=== PATIENT | female | born 1985 | race African-American/Black ===

== ENCOUNTER 2017-12-22 00:27 | Emergency (ER) | payer OTHER ==
[2017-12-22 00:41] VITALS: BP 134/74; PULSE 76; TEMP 98.2; BMI 44.4
[2017-12-22] MEDS ORDERED: IBUPROFEN 400 MG TABLET (FP) PO ONE ×2 (01:16→02:26)
--- NOTE | 2017-12-22 01:37 | PDOC ---
History of Present Illness - General Chief Complaint: Pain, Acute Stated Complaint: FALL LEFT KNEE Time Seen by Provider: 12/22/17 01:05 History Source: Patient Exam Limitations: No Limitations - History of Present Illness Initial Comments: 12/22/17 01:31 Healthy 32-year-old female morbidly obese presents with left knee pain after fall from ladder. Patient was on for the last rung when she misstepped and fell to the ground, landing on her left knee and striking her left hand. No head injury or loss of consciousness, the patient initially felt fine and was ambulatory but has slowly developed progressive left knee pain with difficulty weightbearing and difficulty ranging. No sensory deficit, has noted some swelling. Reports isolated pain to the left fourth digit around the middle phalanx and DIP joint, no sensory deficit. No other complaints, did not take anything for pain. Past History - Past Medical History Allergies/Adverse Reactions: Allergies Allergy/AdvReac Type Severity Reaction Status Date / Time C[place]ut Allergy Itching Verified 12/22/17 00:41 No Known Drug Allergies Allergy Verified 12/22/17 00:41 strawberry [[place]] Allergy Itching Verified 12/22/17 00:41 tomato [Tomato] Allergy Itching Verified 12/22/17 00:41 Home Medications: Ambulatory Orders Naproxen 500 mg PO BID PRN #20 tablet 12/22/17 Oxycodone HCl/Acetaminophen [Percocet 5-325 mg Tablet] 1 - 2 tab PO TID PRN #20 tab MDD 6 tabs 12/22/17 Asthma: No Cancer: No Cardiac Disorders: No COPD: No Diabetes: Yes (IDDM) HTN: Yes (chronic, per chart) Seizures: No Thyroid Disease: No - Suicide/Smoking/Psychosocial Hx Smoking Status: No Smoking History: Never smoked Have you smoked in the past 12 months: Yes Number of Cigarettes Smoked Daily: 3 'Breaking Loose' booklet given: 01/06/15 Hx Alcohol Use: No Drug/Substance Use Hx: No Substance Use Type: Marijuana Hx Substance Use Treatment: No Review of Systems - Review of Systems Constitutional: No: Chills, Fever HEENTM: No: Recent change in vision Respiratory: No: Cough, Shortness of Breath Cardiac (ROS): No: Chest Pain ABD/GI: No: Nausea, Vomiting Musculoskeletal: Yes: See HPI Neurological: No: Headache All Other Systems: Reviewed and Negative *Physical Exam - Vital Signs Last Vital Signs Temp Pulse Resp BP Pulse Ox 98.2 F 76 18 134/74 98 12/22/17 00:40 12/22/17 00:40 12/22/17 00:40 12/22/17 00:40 12/22/17 00:40 - Physical Exam Comments: 12/22/17 01:34 General: Patient is alert and in no acute distress. Speech is clear and appropriate. Head: Atraumatic and nontender. HEENT: Pupils are equal round and reactive to light, extraocular movements are intact. No facial deformity/tenderness, no septal hematoma. The oropharynx is clear. Neck: The trachea is midline, there is no stridor. There is no midline cervical spine tenderness, full range of motion of neck. Chest: Nontender, no ecchymosis or abrasions. Heart: S1-S2, regular rate and rhythm. No murmurs. Lungs: Clear to auscultation bilaterally. Symmetric chest rise. Abdomen: Soft/nontender/nondistended. Bowel sounds are normal. There is no abdominal or flank ecchymosis. Back/Pelvis: There is no midline spine tenderness or step-off. Pelvis is stable and nontender. Extremities: Left hand: No obvious swelling or deformity, tender to palpation in the left fourth digit middle phalanx and DIP joint, otherwise full extension and flexion against resistance. Left knee: Positive swelling, tender to the proximal tibia, otherwise full flexion and extension with full strength, stable on stress. 2+ distal pulses throughout, Full hip and ankle range of motion. Neuro: Alert and oriented x3. Cranial nerves II through XII are intact. 5 out of 5 motor strength x4 extremities. [place]-rircun is intact. No pronator drift. Gait is stable. Skin: No abrasions/hematomas/lacerations. Psych: Affect is appropriate. ED Treatment Course - RADIOLOGY Radiology Studies Ordered: Category Date Time Status HAND- LEFT [RAD] Stat Radiology 12/22/17 01:19 Ordered KNEE 2 POS-LEFT [RAD] Stat Radiology 12/22/17 01:19 Ordered Medical Decision Making - Medical Decision Making 12/22/17 01:37 Healthy 32-year-old female with morbid obesity presents with left fourth digit and left knee pain status post fall from third rung of [employer]. No head injury or loss of consciousness, likely sprain given the delayed onset of pain, rule out fracture. Pain control Left hand and left knee x-rays Reassess 12/22/17 02:53 On my preliminary review, there is no acute fracture or dislocation in the hand or knee. Able to weight-bear after pain meds, retains full range of motion and neurovascularly intact. Mj bandage applied support, crutches applied for support, orthopedics referral. Understands return criteria. *DC/Admit/Observation/Transfer Diagnosis at time of Disposition: Accidental fall from ladder Qualifiers: Encounter type: initial encounter Qualified Code(s): W11.XXXA - Fall on and from ladder, initial encounter Left knee injury Qualifiers: Encounter type: initial encounter Qualified Code(s): S89.92XA - Unspecified injury of left lower leg, initial encounter Knee sprain Qualifiers: Encounter type: initial encounter Involved ligament of knee: unspecified ligament Laterality: left Qualified Code(s): S83.92XA - Sprain of unspecified site of left knee, initial encounter - Discharge Dispostion Disposition: HOME Condition at time of disposition: Stable - Prescriptions Prescriptions: Naproxen 500 mg PO BID PRN #20 tablet PRN Reason: Pain Oxycodone HCl/Acetaminophen [Percocet 5-325 mg Tablet] 1 - 2 tab PO TID PRN #20 tab MDD 6 tabs PRN Reason: Pain - Referrals Referrals: Peryr Patel MD [Staff Physician] - - Patient Instructions Printed Discharge Instructions: DI for Knee Sprain Additional Instructions: Activity as tolerated. Stay hydrated. An x-ray today showed no acute abnormalities in the finger or knee. The pain is likely due to bruises and/or sprains. Naproxen twice daily as prescribed as needed for moderate pain. Percocet as prescribed as needed for severe pain, Percocet can make you lightheaded so take proper precautions. Ice and elevate the affected areas for 20 minutes every 3-4 hours to reduce swelling. Use Mj bandage and crutches for support. Continue your medications as previously prescribed by your physician. You should follow up with an orthopedic (consider calling Dr. Patel) as soon as possible regarding today's emergency department visit. Return to the emergency department for any new or concerning symptoms, particularly persistent or worsening pain, severe swelling or discoloration, numbness. - Post Discharge Activity Forms/Work/School Notes: Back to Work
== END 2017-12-22 03:20 | disposition home or self-care (01) ==
LOC: JER 00:27
DX: S83.8X2A Sprain of other specified parts of left knee, initial encounter (principal); W11.XXXA Fall on and from ladder, initial encounter; Y93.89 Activity, other specified; Y92.89 Other specified places as the place of occurrence of the external cause; Y99.8 Other external cause status; I10 Essential (primary) hypertension; E10.9 Type 1 diabetes mellitus without complications; Z79.4 Long term (current) use of insulin; E66.01 Morbid (severe) obesity due to excess calories; Z68.41 Body mass index [BMI] 40.0-44.9, adult
CPT/HCPCS: 73130-TC-LR-FY; 73560-TC-LT-FY; 84703; 99281-25

== ENCOUNTER 2017-12-28 15:37 | Emergency (ER) | payer OTHER ==
[2017-12-28 15:55] VITALS: BP 163/99; PULSE 59; TEMP 98.6; BMI 45.1
--- NOTE | 2017-12-28 15:56 | PDOC ---
Rapid Medical Evaluation Time Seen by Provider: 12/28/17 15:52 Medical Evaluation: Allergies Allergy/AdvReac Type Severity Reaction Status Date / Time [place] Allergy Itching Verified 12/22/17 00:41 No Known Drug Allergies Allergy Verified 12/22/17 00:41 strawberry [[place]] Allergy Itching Verified 12/22/17 00:41 tomato [[place]ato] Allergy Itching Verified 12/22/17 00:41 12/28/17 15:52 The patient complaints of: left knee injury last week, today while carrying a box and buckled, landing on her buttocks, now states unable to ambulate, no sensory changes or radiation of pain On brief exam: tenderness to left patella, LROM with flexion , no crepitus or deformity The patient was ordered for: knee xray The patient will proceed to the ED Discharge Disposition - Diagnosis Knee pain, left - Referrals - Patient Instructions - Post Discharge Activity
--- NOTE | 2017-12-28 18:12 | PDOC ---
History of Present Illness - General Chief Complaint: Pain Stated Complaint: KNEE PAIN Time Seen by Provider: 12/28/17 15:52 History Source: Patient Exam Limitations: No Limitations - History of Present Illness Initial Comments: 12/28/17 18:05 HISTORY OF PRESENT ILLNESS: 32-year-old woman without significant medical history of presents emergency Department left knee pain status post carrying boxes at work. Patient states she was seen and evaluated for knee pain one week ago and was told she had a sprained knee. Patient previously scheduled to follow -up with orthopedist on 12/29 for continued evaluation. Patient states wet work she felt a buckle in her left knee causing her to fall to the ground. She reports her knee has become more swollen and has had decreased range of motion as result of swelling and pain. She denies any direct trauma. No recent travel or sick contacts. PAST MEDICAL HISTORY: Denies past medical history SURGICAL HISTORY: Denies ALLERGIES: No known drug allergies REVIEW OF SYSTEMS General/Constitutional: Denies fever or chills. Denies weakness, weight change. HEENT: Denies change in vision. Denies ear pain or discharge. Denies sore throat. Cardiovascular: Denies chest pain or shortness of breath. Respiratory: Denies cough, wheezing, or hemoptysis. Gastrointestinal: Denies nausea, vomiting, diarrhea or constipation. Denies rectal bleeding. Genitourinary: Denies dysuria, frequency, or change in urination. Musculoskeletal: Left knee pain. Denies neck or back pain. Skin and breasts: Denies rash or easy bruising. Neurologic: Denies headache, vertigo, loss of consciousness, or loss of sensation. Psychiatric: Denies depression or anxiety. Endocrine: Denies increased thirst. Denies abnormal weight change. Hematologic/Lymphatic: Denies anemia, easy bleeding, or history of blood clots. Allergic/Immunologic: Denies hives or skin allergy. Denies latex allergy. PHYSICAL EXAM General Appearance: Well-appearing, appropriately dressed. No apparent distress , no intoxication. HEENT: EOMI, PERRLA, normal ENT inspection, normal voice, TMs normal, pharynx normal. No conjunctival pallor. No photophobia, scleral icterus. Neck: Supple. Trachea midline. No tenderness, rigidity, carotid bruit, stridor , lymphadenopathy, or thyromegaly. Respiratory/Chest: Lungs CTAB. No shortness of breath, chest tenderness, respiratory distress, accessory muscle use. No crackles, rales, rhonchi, stridor , wheezing, dullness Cardiovascular: RRR. S1, S2. No JVD, murmur, bradycardia, tachycardia. Vascular Pulses: Dorsalis-Pedis (R): 2+, Dorsalis-Pedis (L): 2+ Gastrointestinal/Abdominal: Normal bowel sounds. Abdomen soft, non-distended. No tenderness or rebound tenderness. No organomegaly, pulsatile mass, guarding, hernia, hepatomegaly, splenomegaly. Lymphatic: No adenopathy, tenderness. Musculoskeletal/Extremities: Normal inspection. FROM of all extremities, normal capillary refill. Pelvis Stable. No CVA tenderness. Swelling appreciated to the circumferential left knee. Tender to palpation and popliteal , medial and lateral aspects of the knee. Patella is mobile. No calf tenderness or cords present. Integumentary: Appropriate color, dry, warm. No cyanosis, erythema, jaundice or rash Neurologic: circular saw operator II-XII intact. Fully oriented, alert. Appropriate mood/affect. Motor strength 5/5. No appreciable EOM palsy, facial droop or sensory deficit. Past History - Past Medical History Allergies/Adverse Reactions: Allergies Allergy/AdvReac Type Severity Reaction Status Date / Time [place] Allergy Itching Verified 12/28/17 15:55 No Known Drug Allergies Allergy Verified 12/28/17 15:55 strawberry [[place]] Allergy Itching Verified 12/28/17 15:55 tomato [Tomato] Allergy Itching Verified 12/28/17 15:55 Home Medications: Ambulatory Orders NK [No Known Home Medication] 12/28/17 Asthma: No Cancer: No Cardiac Disorders: No COPD: No Diabetes: Yes (IDDM) HTN: Yes (chronic, per chart) Seizures: No Thyroid Disease: No - Suicide/Smoking/Psychosocial Hx Smoking Status: No Smoking History: Never smoked Have you smoked in the past 12 months: Yes Number of Cigarettes Smoked Daily: 3 'Breaking Loose' booklet given: 01/06/15 Hx Alcohol Use: No Drug/Substance Use Hx: No Substance Use Type: Marijuana Hx Substance Use Treatment: No *Physical Exam - Vital Signs Last Vital Signs Temp Pulse Resp BP Pulse Ox 98.6 F 59 L 18 163/99 100 12/28/17 15:51 12/28/17 15:51 12/28/17 15:51 12/28/17 15:51 12/28/17 15:51 Medical Decision Making - Medical Decision Making 12/28/17 18:15 A/P: 32-year-old female with left knee pain Tenderness to the popliteal, medial and lateral aspects of left knee Patella mobile Limited range of motion with flexion and extension secondary to pain 2+ DP pulses present X-rays as read by me: No acute fracture or dislocation present I will discharge the patient home to follow-up with her orthopedist as scheduled for tomorrow. Percocet 2 tablets now. I discussed the physical exam findings, ancillary test results and final diagnoses with the patient. I answered all of the patient's questions. The patient was satisfied with the care received and felt comfortable with the discharge plan and treatment plan. The patient will call their primary care physician within 24 hours to arrange follow-up and will return to the Emergency Department with any new, persistent or worsening symptoms. *DC/Admit/Observation/Transfer Diagnosis at time of Disposition: Knee pain, left Qualifiers: Chronicity: acute Qualified Code(s): M25.562 - Pain in left knee - Discharge Dispostion Disposition: HOME Condition at time of disposition: Stable Decision to Admit order: No - Referrals Referrals: Colten Vance MD [Staff Physician] - - Patient Instructions Additional Instructions: Take Tylenol or Motrin as needed for pain. Follow manufacturers instructions for appropriate dosage. Try not to walk or bear weight on your left leg as much as possible for the next 3 days. Apply ice for 20 minutes and removed for at least 20 minutes before reapplying the ice. Keep immobilizer on your knee as much as possible to help decrease some of the swelling control pain. Whenever possible keep your foot elevated. Keep your appointment with your orthopedist tomorrow. Return to emergency department for discoloration of the foot, numbness or tingling to the foot, worsening pain, or any other concerns. Thank you very much for choosing us to provide your emergent healthcare needs. - Post Discharge Activity Forms/Work/School Notes: Back to Work
== END 2017-12-28 18:27 | disposition home or self-care (01) ==
LOC: JERFT 15:37
DX: M25.562 Pain in left knee (principal); W18.39XA Other fall on same level, initial encounter; Y93.89 Activity, other specified; Y92.59 Other trade areas as the place of occurrence of the external cause; Y99.0 Civilian activity done for income or pay; E10.9 Type 1 diabetes mellitus without complications; Z79.4 Long term (current) use of insulin
CPT/HCPCS: 73562-TC-LT-FY; 99281-25

== ENCOUNTER 2018-02-23 22:40 | Emergency (ER) | payer OTHER ==
[2018-02-23 23:21] VITALS: BP 140/80; PULSE 64; TEMP 98.5; BMI 44.4
[2018-02-24] MEDS ORDERED: SODIUM CHLORIDE 1,000 ML IV STA (00:06)
[2018-02-24 01:54] LABS: BASO % 0.3 % (0-2.0); EOS % 1.5 % (0-4.5); HEMATOCRIT 36.7 % (32.4-45.2); HEMOGLOBIN 13.3 GM/dL (10.7-15.3); LYMPH % 39.3 % (8-40); MCH 30.2 pg (25.7-33.7); MCHC 36.3 g/dl (32.0-36.0); MEAN PLT VOLUME 11.5 fl (7.5-11.1); MONO % 6.4 % (3.8-10.2); NEUT % 52.5 % (42.8-82.8); PLATELET COUNT 151 K/MM3 (134-434); RBC 4.42 M/mm3 (3.60-5.2); RDW 12.5 % (11.6-15.6); WHITE BLOOD COUNT 9.6 K/mm3 (4.0-10.0)
[2018-02-24 02:19] LABS: URINE APPEARANCE CLEAR; URINE BILIRUBIN NEGATIVE (<2.0 mg/dL); URINE COLOR COLORLESS; URINE GLUCOSE (UA) 3+ (NEGATIVE); URINE KETONE NEGATIVE (NEGATIVE); URINE LEUK ESTERASE NEGATIVE (NEGATIVE); URINE NITRITE NEGATIVE (NEGATIVE); URINE PROTEIN NEGATIVE (NEGATIVE); URINE UROBILINOGEN NEGATIVE mg/dL (0.2-1.0)
--- NOTE | 2018-02-24 02:23 | PDOC ---
History of Present Illness - General History Source: Patient Exam Limitations: No Limitations - History of Present Illness Initial Comments: 02/24/18 02:20 Best Contact:[phone] PCP:Debra Pmhx:NIDDM Pshx:03/17/2018: B/L meniscus/acl repair Allergies: NKDA FH:0 Social Hx: Cigarettes/ 0 Alcohol/ 0 Drugs/0 LMP:02/27/2018 32-year-old female presents to the emergency department complaining of a fingerstick of 600 his prior to her arrival to the emergency department and feeling exhausted. Patient states she feels tired with increased thirst without nausea/vomiting, fever/chills, headache, dizziness, lightheadedness, neck pain/ stiffness, back pains, chest pain, shortness of breath, abdominal pains, flank pains, urinary symptoms: Frequency/urgency/hesitancy, hematuria, extremity numbness or tingling sensation, lower extremity swelling. After IV fluids, patient states she feels a lot better. <Maikel Cobos - Last Filed: 02/24/18 04:13> <Susana Eugene - Last Filed: 02/24/18 04:15> - General Chief Complaint: Blood Sugar Problem Stated Complaint: BLOOD SUGAR PROBLEM Time Seen by Provider: 02/24/18 02:11 Past History - Past Medical History Asthma: No Cancer: No Cardiac Disorders: No COPD: No Diabetes: Yes (IDDM) HTN: Yes (chronic, per chart) Seizures: No Thyroid Disease: No - Suicide/Smoking/Psychosocial Hx Smoking Status: No Smoking History: Never smoked Have you smoked in the past 12 months: Yes Number of Cigarettes Smoked Daily: 3 'Breaking Loose' booklet given: 01/06/15 Hx Alcohol Use: No Drug/Substance Use Hx: No Substance Use Type: Marijuana Hx Substance Use Treatment: No <Maikel Cobos - Last Filed: 02/24/18 04:13> <Susana Eugene - Last Filed: 02/24/18 04:15> - Past Medical History Allergies/Adverse Reactions: Allergies Allergy/AdvReac Type Severity Reaction Status Date / Time [place] Allergy Itching Verified 02/23/18 23:18 No Known Drug Allergies Allergy Verified 02/23/18 23:18 strawberry [[place]] Allergy Itching Verified 02/23/18 23:18 tomato [[place]] Allergy Itching Verified 02/23/18 23:18 Home Medications: Ambulatory Orders NK [No Known Home Medication] 12/28/17 Review of Systems - Review of Systems Able to Perform ROS?: Yes Comments:: 02/24/18 02:22 CONSTITUTIONAL: Absent: fever, chills, diaphoresis, generalized weakness, malaise, loss of appetite HEENT: Absent: rhinorrhea, nasal congestion, throat pain, throat swelling, difficulty swallowing, mouth swelling, ear pain, eye pain, visual Changes CARDIOVASCULAR: Absent: chest pain, loss of consciousness, palpitations, irregular heart rate, peripheral edema RESPIRATORY: Absent: cough, shortness of breath, dyspnea with exertion, orthopnea, wheezing, stridor, hemoptysis GASTROINTESTINAL: Absent: abdominal pain, abdominal distension, nausea, vomiting, diarrhea, constipation, melena, hematochezia GENITOURINARY: Absent: dysuria, frequency, urgency, hesitancy, hematuria, flank pain, genital pain MUSCULOSKELETAL: Absent: myalgia, arthralgia, joint swelling SKIN: Absent: rash, itching, pallor HEMATOLOGIC/IMMUNOLOGIC: Absent: easy bleeding, easy bruising, lymphadenopathy, frequent infections ENDOCRINE: Absent: unexplained weight gain, unexplained weight loss, heat intolerance, cold intolerance NEUROLOGIC: Absent: headache, focal weakness or paresthesias, dizziness, unsteady gait, seizure, mental status changes, bladder or bowel incontinence PSYCHIATRIC: Absent: anxiety, depression, suicidal or homicidal ideation, hallucinations. Is the patient limited Vietnamese proficient: No <Maikel Cobos - Last Filed: 02/24/18 04:13> *Physical Exam - Vital Signs Last Vital Signs Temp Pulse Resp BP Pulse Ox 98.5 F 64 18 140/80 98 02/23/18 23:18 02/23/18 23:18 02/23/18 23:18 02/23/18 23:18 02/23/18 23:18 - Physical Exam Comments: 02/24/18 02:22 GENERAL: Well developed, well nourished. Awake and alert. No acute distress. HEENT: Normocephalic, atraumatic. PERRLA, EOMI. No conjunctival pallor. Sclera are non- icteric. Moist mucous membranes. Oropharynx is clear. NECK: Supple. Full ROM. No JVD. Carotid pulses 2+ and symmetric, without bruits. No thyromegaly. No lymphadenopathy. CARDIOVASCULAR: Regular rate and rhythm. No murmurs, rubs, or gallops. Distal pulses are 2+ and symmetric. PULMONARY: No evidence of respiratory distress. Lungs clear to auscultation bilaterally. No wheezing, rales or rhonchi. ABDOMINAL: Soft. Non-tender. Non-distended. No rebound or guarding. No organomegaly. Normoactive bowel sounds. MUSCULOSKELETAL Normal range of motion at all joints. No bony deformities or tenderness. No CVA tenderness. EXTREMITIES: No cyanosis. No clubbing. No edema. No calf tenderness. SKIN: Warm and dry. Normal capillary refill. No rashes. No jaundice. NEUROLOGICAL: Alert, awake, appropriate. Cranial nerves 2-12 intact. No deficits to light touch and temperature in face, upper extremities and lower extremities. No motor deficits in the in face, upper extremities and lower extremities. Normoreflexic in the upper and lower extremities. Normal speech. Toes are down- going bilaterally. Gait is normal without ataxia. PSYCHIATRIC: Cooperative. Good eye contact. Appropriate mood and affect. <Maikel Cobos - Last Filed: 02/24/18 04:13> - Vital Signs Last Vital Signs Temp Pulse Resp BP Pulse Ox 98.5 F 64 18 140/80 98 02/23/18 23:18 02/23/18 23:18 02/23/18 23:18 02/23/18 23:18 02/23/18 23:18 <Susana Eugene - Last Filed: 02/24/18 04:15> Moderate Sedation - Procedure Monitoring Vital Signs: Procedure Monitoring Vital Signs Temperature 98.5 F 02/23/18 23:18 Pulse Rate 64 02/23/18 23:18 Respiratory Rate 18 02/23/18 23:18 Blood Pressure 140/80 02/23/18 23:18 O2 Sat by Pulse Oximetry (%) 98 02/23/18 23:18 <Maikel Cobos - Last Filed: 02/24/18 04:13> - Procedure Monitoring Vital Signs: Procedure Monitoring Vital Signs Temperature 98.5 F 02/23/18 23:18 Pulse Rate 64 02/23/18 23:18 Respiratory Rate 18 02/23/18 23:18 Blood Pressure 140/80 02/23/18 23:18 O2 Sat by Pulse Oximetry (%) 98 02/23/18 23:18 <Susana Eugene - Last Filed: 02/24/18 04:15> ED Treatment Course - LABORATORY CBC & Chemistry Diagram: 02/24/18 00:51 02/24/18 00:51 - Medications Given in the ED: ED Medications Discontinued Medications Generic Name Dose Route Start Last Admin Trade Name Freq PRN Reason Stop Dose Admin Sodium Chloride 1,000 mls @ 1,000 mls/hr 02/24/18 00:06 02/24/18 01:27 Normal Saline - IV 02/24/18 01:05 1,000 mls/hr ASDIR STA Administration <Maikel Cobos - Last Filed: 02/24/18 04:13> - LABORATORY CBC & Chemistry Diagram: 02/24/18 00:51 02/24/18 00:51 - ADDITIONAL ORDERS Additional order review: Laboratory Results 02/24/18 02/24/18 02/24/18 01:30 01:30 00:51 Sodium 136 Potassium 3.5 Chloride 104 Carbon Dioxide 23 Anion Gap 10 BUN 13 Creatinine 0.7 Creat Clearance w eGFR > 60 Random Glucose 364 H* Calcium 7.2 L Total Bilirubin 0.3 AST 9 L ALT 11 L Alkaline Phosphatase 70 Total Protein 6.1 L Albumin 2.9 L Urine Color Colorless Urine Appearance Clear Urine pH 6.0 Ur Specific [place] 1.031 Urine Protein Negative Urine Glucose (UA) 3+ H Urine Ketones Negative Urine Blood Negative Urine Nitrite Negative Urine Bilirubin Negative Urine Urobilinogen Negative Ur Leukocyte Esterase Negative Urine HCG, Qual Negative 02/24/18 00:51 RBC 4.42 MCV 83.0 MCHC 36.3 H RDW 12.5 D MPV 11.5 H D Neutrophils % 52.5 D Lymphocytes % 39.3 D Monocytes % 6.4 Eosinophils % 1.5 D Basophils % 0.3 - Medications Given in the ED: ED Medications Discontinued Medications Generic Name Dose Route Start Last Admin Trade Name Freq PRN Reason Stop Dose Admin Sodium Chloride 1,000 mls @ 1,000 mls/hr 02/24/18 00:06 02/24/18 01:27 Normal Saline - IV 02/24/18 01:05 1,000 mls/hr ASDIR STA Administration Insulin Human Regular 4 units 02/24/18 03:46 02/24/18 03:55 Novolin R Vial *For Ivpush Or Iv Drip Only* SQ 02/24/18 03:47 4 units ONCE ONE Administration Potassium Chloride 40 meq 02/24/18 03:26 02/24/18 03:55 K-Dur - PO 02/24/18 03:27 40 meq ONCE ONE Administration <Susana Eugene - Last Filed: 02/24/18 04:15> Medical Decision Making - Medical Decision Making 02/24/18 04:15 Pt will be given IV and subcutaneous regular insulin. She has an elevated blood sugar of 357 currently. <Susana Eugene - Last Filed: 02/24/18 04:15> *DC/Admit/Observation/Transfer - Discharge Dispostion Decision to Admit order: No <Maikel Cobos - Last Filed: 02/24/18 04:13> <Susana Eugene - Last Filed: 02/24/18 04:15> Diagnosis at time of Disposition: Hyperglycemia - Discharge Dispostion Condition at time of disposition: Stable - Patient Instructions Printed Discharge Instructions: DI for Hyperglycemia -- Adult Additional Instructions: Be sure to follow-up with your physician as scheduled on Monday Increase fruits and vegetables this Increase fluids Return back to the emergency department for any concerns, chest pain, shortness of breath, lethargy
[2018-02-24 03:08] LABS: ALBUMIN 2.9 g/dl (3.4-5.0); ALK PHOS 70 U/L (45-117); ANION GAP 10 MMOL/L (8-16); BILIRUBIN,TOTAL 0.3 mg/dL (0.2-1); BLOOD UREA NITROGEN 13 mg/dL (7-18); CALCIUM 7.2 mg/dL (8.5-10.1); CHLORIDE 104 mmol/L (98-107); CO2 23 mmol/L (21-32); CREATININE 0.7 mg/dL (0.55-1.3); POTASSIUM 3.5 mmol/L (3.5-5.1); SGOT/AST 9 U/L (15-37); SGPT/ALT 11 U/L (13-61); SODIUM 136 mmol/L (136-145); TOT PROT 6.1 g/dl (6.4-8.2)
[2018-02-24 03:09] LABS: GLUCOSE,RANDOM 364 mg/dL (74-106)
[2018-02-24] MEDS ORDERED: POTASSIUM CHLORIDE TABS 20 MEQ TABLET.ER (FP) PO ONE ×2 (03:26→03:49)
[2018-02-24] MEDS ORDERED: INSULIN REGULAR HUMAN 100 UNITS/ML *VIAL SQ ONE (03:46)
[2018-02-24] MEDS ORDERED: INSULIN REGULAR HUMAN 100 UNITS/ML *VIAL ONE ×2 (03:50→04:34)
[2018-02-24] MEDS ORDERED: INSULIN REGULAR HUMAN 100 UNITS/ML *VIAL IVPUSH ONE (04:14)
== END 2018-02-24 05:12 | disposition home or self-care (01) ==
LOC: JER 22:40
PROC: 3E0337Z Introduction of Electrolytic and Water Balance Substance into Peripheral Vein, Percutaneous Approach (ICD-10-PCS; principal; 2018-02-23)
PROC: 3E033VG Introduction of Insulin into Peripheral Vein, Percutaneous Approach (ICD-10-PCS; 2018-02-23)
PROC: 3E013VG Introduction of Insulin into Subcutaneous Tissue, Percutaneous Approach (ICD-10-PCS; 2018-02-23)
DX: E10.65 Type 1 diabetes mellitus with hyperglycemia (principal); Z79.4 Long term (current) use of insulin
CPT/HCPCS: 36415; 80053; 81003; 82962; 84703; 85025; 96361; 96372; 96374; 99282-25; J7030